=== PATIENT | female | born 1965 | race Caucasian/White ===

== ENCOUNTER 2020-01-31 09:05 | Emergency (ER) | payer SELFPAY ==
[2020-02-01 20:28] LABS: SARS-CoV-2 MS2 Positive; SARS-CoV-2 N Gene Negative; SARS-CoV-2 S Gene Negative; SARS-CoV-2 by NAA Not Detected (NotDetected); SARS-CoV-2 orf1ab Negative
== END 2020-01-31 10:15 | disposition home or self-care (01) ==
LOC: NAV ERS 09:05
DX: J20.9 Acute bronchitis, unspecified (principal); J06.9 Acute upper respiratory infection, unspecified; Z20.828 Contact with and (suspected) exposure to other viral communicable diseases; E03.9 Hypothyroidism, unspecified; I10 Essential (primary) hypertension; Z87.891 Personal history of nicotine dependence; Z79.899 Other long term (current) drug therapy
CPT/HCPCS: 87635; 87804; 99283; U0003

== ENCOUNTER 2021-03-22 07:43 | Emergency (ER) | payer OTHER, SELFPAY | END 2021-03-22 08:35 | disposition home or self-care (01) | LOC: NAV ERS 07:43 | DX: J06.9 Acute upper respiratory infection, unspecified (principal); E03.9 Hypothyroidism, unspecified; I10 Essential (primary) hypertension | CPT/HCPCS: 99283 ==

== ENCOUNTER 2022-05-18 19:42 | Emergency (ER) | payer SELFPAY ==
[2022-05-18 20:21] LABS: Bilirubin Negative (Negative); Blood, Urine Small (Negative); Glucose, Urine (Dipstick) Negative (Negative); Ketone, Urine Negative (Negative); Leukocyte Large (Negative); Nitrite Negative (Negative); Protein, Urine (Dipstick) Trace mg/dL (Neg-Trace); Specific Gravity, Urine 1.025 (1.005-1.030)
[2022-05-18 20:33] LABS: Clarity Hazy (Clear)
[2022-05-18 20:34] LABS: Transitional Epithelial 0-3 HPF (None Seen); WBC/HPF 21-50 HPF (0-3)
[2022-05-18 20:35] LABS: Bacteria/HPF Rare-Few HPF (None Seen)
== END 2022-05-18 21:00 | disposition home or self-care (01) ==
LOC: NAV ERS 19:42
DX: J02.0 Streptococcal pharyngitis (principal); N39.0 Urinary tract infection, site not specified; E03.9 Hypothyroidism, unspecified; I10 Essential (primary) hypertension
CPT/HCPCS: 81003; 81015; 87430; 87804; 99283